=== PATIENT | female | born 1940 | race Caucasian/White ===

== ENCOUNTER 2020-02-05 20:25 | Emergency (ER) | payer MEDICARE, OTHER ==
[2020-02-05] MEDS: Acetaminophen 325 MG Tab PO ONE (20:38)
[2020-02-05 20:57] LABS: CHLORIDE,CL 97 mmol/L (98-107); SODIUM,NA 130 mmol/L (136-145)
--- NOTE | 2020-02-05 21:16 | EDM.PDOC ---
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 - Related Data Allergies Allergy/AdvReac Type Severity Reaction Status Date / Time No Known Allergies Allergy Verified 02/05/20 20:38 ED ROS GENERAL - Review of Systems Review Of Systems: See Below Constitutional: Reports: Fever, Chills, Weakness Respiratory: Reports: No Symptoms Cardiovascular: Reports: No Symptoms GI/Abdominal: Reports: No Symptoms : Reports: No Symptoms Musculoskeletal: Reports: No Symptoms Skin: Reports: No Symptoms Neurological: Reports: No Symptoms Psychiatric: Reports: No Symptoms ED EXAM, GENERAL - Physical Exam Exam: See Below Exam Limited By: No Limitations General Appearance: Alert, WD/WN, Mild Distress Throat/Mouth: Normal Oropharynx Neck: Supple Respiratory/Chest: Lungs Clear Cardiovascular: Regular Rate, Rhythm GI/Abdominal: Soft, Non-Tender Extremities: Normal Inspection Neurological: Alert, Oriented, No Motor/Sensory Deficits Psychiatric: Normal Affect, Normal Mood Course - Vital Signs Last Recorded V/S: Last Vital Signs Temp 100.9 F H 02/05/20 20:30 Pulse 90 02/05/20 20:30 Resp 20 02/05/20 20:30 BP 145/67 H 02/05/20 20:30 Pulse Ox 95 02/05/20 20:30 - Orders/Labs/Meds Orders: Active Orders 24 hr Category Date Time Status CORONAVIRUS COVID-19 BETZY [MOLEC] Stat Lab 02/05/20 20:35 Received Isolation [COMM] Routine Oth 02/05/20 20:34 Active Labs: Laboratory Tests 02/05/20 02/05/20 Range/Units 20:35 20:35 WBC 4.6 (4.0-10.2) K/uL RBC 4.33 (3.77-5.09) M/uL Hgb 13.0 (11.7-15.5) g/dL Hct 38.4 (34.0-46.0) % MCV 88.7 (84.0-98.0) fL MCH 30.0 (28.2-33.3) pg MCHC 33.9 (31.7-36.0) g/dL RDW 12.8 (11.2-14.1) % Plt Count 154 (150-350) K/uL Neut % (Auto) 63.1 (45.0-80.0) % Lymph % (Auto) 19.0 (10.0-50.0) % Russell % (Auto) 17.9 H (2.0-14.0) % Eos % (Auto) 0.0 (0.0-5.0) % Baso % (Auto) 0.0 (0.0-2.0) % Neut # (Auto) 2.89 (1.40-7.00) K/uL Lymph # (Auto) 0.87 (0.50-3.50) K/uL Russell # (Auto) 0.82 (0.00-1.00) K/uL Eos # (Auto) 0.00 (0.00-0.50) K/uL Baso # (Auto) 0.00 (0.00-0.20) K/uL Sodium 130 L (136-145) mmol/L Potassium 3.8 (3.5-5.1) mmol/L Chloride 97 L (98-107) mmol/L Carbon Dioxide 24.6 (21.0-32.0) mmol/L BUN 13 (7-18) mg/dL Creatinine 0.89 (0.51-1.17) mg/dL Est Cr Clr Drug Dosing 41.70 mL/min Estimated GFR (MDRD) > 60 mL/min Glucose 124 H (74-106) mg/dL Calcium 7.6 L (8.5-10.1) mg/dL Total Bilirubin 0.5 (0.2-1.0) mg/dL AST 27 (15-37) U/L ALT 24 (12-78) U/L Alkaline Phosphatase 55 (46-116) IU/L Total Protein 6.9 (6.4-8.2) g/dL Albumin 2.9 L (3.4-5.0) g/dL Meds: Medications Discontinued Medications Generic Name Dose Route Start Last Admin Trade Name Juani PRN Reason Stop Dose Admin Acetaminophen 650 mg 02/05/20 20:29 02/05/20 20:38 Tylenol PO 02/05/20 20:30 650 mg NOW ONE Administration - Re-Assessments/Exams Free Text/Narrative Re-Assessment/Exam: 02/05/20 21:15 See lab Covid-19 pending for AM Pt given IVF Pt stable in ER Departure - Departure Time of Disposition: 21:30 Disposition: Home, Self-Care 01 Clinical Impression: Fever Qualifiers: Fever type: unspecified Qualified Code(s): R50.9 - Fever, unspecified - Discharge Information *PRESCRIPTION DRUG MONITORING PROGRAM REVIEWED*: Not Applicable *COPY OF PRESCRIPTION DRUG MONITORING REPORT IN PATIENT MEGHA: Not Applicable Instructions: Fever, Adult Additional Instructions: Tylenol or Motrin as needed Encourage fluids Follow up in clinic Await Covid testing Sepsis Event Note (ED) - Evaluation Sepsis Screening Result: No Definite Risk - Focused Exam Vital Signs: Vital Signs Temp Pulse Resp BP Pulse Ox 02/05/20 20:30 100.9 F H 90 20 145/67 H 95 - My Orders Last 24 Hours: My Active Orders 02/05/20 20:34 Isolation [COMM] Routine 02/05/20 20:35 CORONAVIRUS COVID-19 BETZY [MOLEC] Stat - Assessment/Plan Last 24 Hours: My Active Orders 02/05/20 20:34 Isolation [COMM] Routine 02/05/20 20:35 CORONAVIRUS COVID-19 BETZY [MOLEC] Stat
== END 2020-02-05 22:07 | disposition home or self-care (01) ==
LOC: LL.ED 20:25
DX: R50.9 Fever, unspecified (principal); Z20.828 Contact with and (suspected) exposure to other viral communicable diseases
CPT/HCPCS: 36415; 80053; 81001; 85025; 87804; 99284; A9270-GY; U0002